=== PATIENT | female | born 1940 | race Caucasian/White ===

== ENCOUNTER 2016-08-18 15:59 | Emergency (ER) | payer MEDICARE, MEDICAID ==
[~2016-08-18] VITALS: Ht 157.5 cm; Wt 50.0 kg
[2016-08-18 16:01] VITALS: TEMP 98.7
[2016-08-18] MEDS ORDERED: RT ADVAIR 128 DISKUS IH (16:28)
[2016-08-18] MEDS ORDERED: VENTOLIN0.09 MG IH (16:28)
[2016-08-18] MEDS ORDERED: SPIRIVA RE2.5 MCG/Ac IH (16:29)
[2016-08-18 18:03] VITALS: BP 145/81; PULSE 88
== END 2016-08-18 18:03 | disposition home or self-care (01) ==
LOC: COL.ER 15:59
DX: S50.02XA Contusion of left elbow, initial encounter (principal); W01.198A Fall on same level from slipping, tripping and stumbling with subsequent striking against other object, initial encounter; Y92.008 Other place in unspecified non-institutional (private) residence as the place of occurrence of the external cause; Z99.81 Dependence on supplemental oxygen

== ENCOUNTER 2016-08-21 18:53 | Inpatient (IN) | payer MEDICARE, MEDICAID ==
[~2016-08-21] VITALS: Ht 157.5 cm; Wt 55.2 kg
[2016-08-21] VITALS (43 sets, daily range): BP systolic 62; BP diastolic 40; PULSE 110; TEMP 97.3; O2SAT 100
[~2016-08-21 18:53] MED LIST: RT ADVAIR 128 DISKUS IH; SPIRIVA RE2.5 MCG/Ac IH; VENTOLIN0.09 MG IH
[2016-08-21 19:28] LABS: BASO # 0.1 (0.0-0.2); BASO % 0.6 % (0.0-2.0); EOS # 0.1 (0.0-0.7); EOS % 1.3 % (0-4.0); GRAN # 6.2 (1.4-6.5); GRAN % 70.7 % (42.2-75.2); HEMATOCRIT 27.4 % (37.0-47.0); LYMPH # 1.2 (1.2-3.4); LYMPH % 14.1 % (20.0-51.0); MEAN CELL VOLUME 79 fl (80.0-100.0); MEAN CORPUSCULAR HEMOGLOBIN 23 pg (27.0-31.0); MEAN CORPUSCULAR HGB CONC 29 g/dl (33.0-37.0); MEAN PLATELET VOLUME 9.9 fl (7.4-10.4); MONO # 1.1 (0.1-0.6); PLATELET COUNT 428 K/mm3 (130-400); RED BLOOD COUNT 3.48 M/mm3 (4.10-5.30); REDCELL DISTRIBUTION WIDTH-CV 17.6 % (11.5-14.5); WHITE BLOOD COUNT 8.7 K/mm3 (4.8-10.8)
[2016-08-21 19:37] LABS: ADJUSTED CALCIUM 9.6 mg/dL (8.4-10.2); ALANINE AMINOTRANSFERASE 34 U/L (9-52); ALKALINE PHOSPHATASE 109 U/L (50-136); ANION GAP 11 mmol/L (7-16); BILIRUBIN,TOTAL 0.6 mg/dL (0.0-1.0); BLOOD UREA NITROGEN 22 mg/dL (7-17); CALCIUM 9.6 mg/dL (8.4-10.2); CARBON DIOXIDE 25 mmol/L (22-30); CHLORIDE 103 mmol/L (98-107); CREATININE, serum 1.32 mg/dL (0.52-1.25); GLUCOSE 102 mg/dL (74-106); LIPASE 125 U/L (23-300); POTASSIUM 4.7 mmol/L (3.4-5.0); SODIUM 139 mmol/L (137-145); TOTAL PROTEIN 7.4 gm/dL (6.4-8.2)
[2016-08-21 19:49] LABS: B-TYPE NATRIURETIC PEPTIDE 1460 pg/mL (0-125); TROPONIN-I 0.013 ng/mL (0.000-0.034)
[2016-08-21 20:53] LABS: PH 7 (5-8); SQUAMOUS EPITHELIAL 0-2 /hpf; URINE APPEARANCE Clear; URINE BACTERIA None Seen /hpf; URINE BILIRUBIN Negative (NEGATIVE); URINE BLOOD Negative (NEGATIVE); URINE COLOR Yellow; URINE GLUCOSE Negative (NEGATIVE); URINE KETONE Negative (NEGATIVE); URINE RBC 0-2 /hpf
[2016-08-21 22:43] LABS: INR 1.2 (0.8-3.0); PROTHROMBIN TIME 13.2 SECONDS (9.7-12.8); SALICYLATE < 1.0 mg/dL
[2016-08-22] VITALS (806 sets, daily range): BP systolic 62–131; BP diastolic 40–92; PULSE 93–112; TEMP 96.8–98.4; O2SAT 86–100
[2016-08-22 01:15] LABS: ARTERIAL BLOOD GAS pH 7.28 (7.35-7.45)
[2016-08-22 01:15] LABS: VENOUS BLOOD GAS SAO2 66.4 % (60-80); VENOUS BLOOD GAS SITE CENTRAL LINE
[2016-08-22 01:16] LABS: ALLEN TEST YES; ALLENS TEST RESULT PASS; ARTERIAL BLD GAS O2 SATURATION 98.4 % (92-100); ARTERIAL BLD GAS TCO2 CT 16.1; ARTERIAL BLOOD GAS BASE EXCESS -10.7 (-2-2); ARTERIAL BLOOD GAS HCO3 15.1 meq/L (22-26); ARTERIAL BLOOD GAS PO2 137.4 mmHg (80-100); ATS? YES
[2016-08-22 04:01] LABS: ARTERIAL BLD GAS O2 SATURATION 97.6 % (92-100); ARTERIAL BLD GAS TCO2 CT 12.9; ARTERIAL BLOOD GAS BASE EXCESS -13.5 (-2-2); ARTERIAL BLOOD GAS HCO3 12.1 meq/L (22-26); ARTERIAL BLOOD GAS PHT 7.29 C (7.35-7.45); ARTERIAL BLOOD GAS PO2 119.2 mmHg (80-100); ARTERIAL BLOOD GAS PO2T 119.2 (80-100); ARTERIAL BLOOD GAS pH 7.29 (7.35-7.45); OXYHEMOGLOBIN 95.7 %
[2016-08-22 04:03] LABS: ALLEN TEST YES; ALLENS TEST RESULT PASS; ARTERIAL BLD GAS O2 SATURATION 97.6 % (92-100); ARTERIAL BLD GAS TCO2 CT 12.9; ARTERIAL BLOOD GAS BASE EXCESS -13.5 (-2-2); ARTERIAL BLOOD GAS HCO3 12.1 meq/L (22-26); ARTERIAL BLOOD GAS PO2 119.2 mmHg (80-100); ARTERIAL BLOOD GAS pH 7.29 (7.35-7.45); ATS? YES
[2016-08-22 04:38] LABS: MEAN CELL VOLUME 82 fl (80.0-100.0); MEAN CORPUSCULAR HGB CONC 28 g/dl (33.0-37.0); MEAN PLATELET VOLUME 10.1 fl (7.4-10.4); PLATELET COUNT 451 K/mm3 (130-400); RED BLOOD COUNT 2.87 M/mm3 (4.10-5.30); REDCELL DISTRIBUTION WIDTH-CV 17.8 % (11.5-14.5); WHITE BLOOD COUNT 8.2 K/mm3 (4.8-10.8)
[2016-08-22 04:48] LABS: INR 1.1 (0.8-3.0); PROTHROMBIN TIME 12.5 SECONDS (9.7-12.8)
[2016-08-22 04:51] LABS: ADJUSTED CALCIUM 8.8 mg/dL (8.4-10.2); ALBUMIN 3.1 gm/dL (3.5-5.0); BILIRUBIN,TOTAL 0.4 mg/dL (0.0-1.0); CALCIUM 8.1 mg/dL (8.4-10.2); CREATININE, serum 0.96 mg/dL (0.52-1.25); MAGNESIUM 1.8 mg/dL (1.6-2.3); TOTAL PROTEIN 6.2 gm/dL (6.4-8.2)
[2016-08-22 04:59] LABS: HEMATOCRIT 23.5 % (37.0-47.0); MEAN CORPUSCULAR HEMOGLOBIN 23 pg (27.0-31.0)
[2016-08-22 05:00] LABS: ADD PATHOLOGY DIFF REVIEW NO; HEMOGLOBIN 6.6 g/dl (12.5-16.0)
[2016-08-22 05:02] LABS: VENOUS BLOOD GAS BE -6.3 (-4-4); VENOUS BLOOD GAS SAO2 61.5 % (60-80)
[2016-08-22 05:04] LABS: VENOUS BLOOD GAS SITE CENTRAL LINE
[2016-08-22 05:16] LABS: TROPONIN-I 0.1 ng/mL (0.000-0.034)
[2016-08-22 06:09] LABS: ANISOCYTOSIS 1+; BAND 24 % (0-10); HYPOCHROMIA 1+; NEUTROPHILS 72 % (42.0-75.2); PLATELET ESTIMATE INCREASED (NORMAL); TOTAL CELLS COUNTED 100
[2016-08-22 11:57] LABS: VENOUS BLOOD GAS SAO2 59.2 % (60-80)
[2016-08-22 12:00] LABS: VENOUS BLOOD GAS SITE CENTRAL LINE
[2016-08-22 12:54] LABS: HEMATOCRIT 27.4 % (37.0-47.0); HEMOGLOBIN 8.6 g/dl (12.5-16.0)
[2016-08-22 13:03] LABS: CALCIUM 8.4 mg/dL (8.4-10.2); CREATININE, serum 1.03 mg/dL (0.52-1.25); MAGNESIUM 1.8 mg/dL (1.6-2.3); POTASSIUM 3.6 mmol/L (3.4-5.0)
[2016-08-22 13:05] LABS: HEMOGLOBIN A1C 5.2 %
[2016-08-22 13:26] LABS: TROPONIN-I 0.075 ng/mL (0.000-0.034)
[2016-08-22 13:50] LABS: LACTIC ACID 2.9 mmol/L (0.4-2.0)
[2016-08-22 17:40] LABS: VENOUS BLOOD GAS SAO2 67.9 % (60-80)
[2016-08-22 17:41] LABS: VENOUS BLOOD GAS SITE CENTRAL LINE
[2016-08-22 22:09] LABS: VENOUS BLOOD GAS SITE CENTRAL LINE
[2016-08-23] VITALS (778 sets, daily range): BP systolic 94–121; BP diastolic 49–104; PULSE 70–137; TEMP 97.7–99; O2SAT 71–100
[2016-08-23 00:42] LABS: PH 5 (5-8); SQUAMOUS EPITHELIAL 0-2 /hpf; URINE APPEARANCE Hazy; URINE BACTERIA Rare /hpf; URINE BILIRUBIN Negative (NEGATIVE); URINE BLOOD 1+ (NEGATIVE); URINE COLOR Yellow; URINE GLUCOSE Negative (NEGATIVE); URINE KETONE Trace (NEGATIVE); URINE UROBILINOGEN Negative (NEGATIVE)
[2016-08-23 01:01] LABS: INFLUENZA B NEGATIVE
[2016-08-23 02:15] LABS: VENOUS BLOOD GAS BE -1.8 (-4-4); VENOUS BLOOD GAS SAO2 66.7 % (60-80); VENOUS BLOOD GAS SITE CENTRAL LINE
[2016-08-23 05:38] LABS: VENOUS BLOOD GAS BE -2.4 (-4-4); VENOUS BLOOD GAS SAO2 74.2 % (60-80); VENOUS BLOOD GAS SITE CENTRAL LINE
[2016-08-23 05:51] LABS: ARTERIAL BLD GAS TCO2 CT 24.7; ARTERIAL BLOOD GAS BASE EXCESS -1.4 (-2-2); ARTERIAL BLOOD GAS HCO3 23.4 meq/L (22-26); ARTERIAL BLOOD GAS PHT 7.39 C (7.35-7.45); ARTERIAL BLOOD GAS pH 7.39 (7.35-7.45); OXYHEMOGLOBIN 96.9 %
[2016-08-23 05:55] LABS: ALLEN TEST YES; ALLENS TEST RESULT PASS; ARTERIAL BLOOD GAS PO2 131.7 mmHg (80-100); ARTERIAL BLOOD GAS PO2T 131.7 (80-100); ATS? YES
[2016-08-23 05:55] LABS: MEAN CELL VOLUME 82 fl (80.0-100.0); MEAN CORPUSCULAR HGB CONC 31 g/dl (33.0-37.0); MEAN PLATELET VOLUME 9.9 fl (7.4-10.4); RED BLOOD COUNT 2.99 M/mm3 (4.10-5.30); REDCELL DISTRIBUTION WIDTH-CV 17.6 % (11.5-14.5); WHITE BLOOD COUNT 19.6 K/mm3 (4.8-10.8)
[2016-08-23 05:59] LABS: INR 1.1 (0.8-3.0); PROTHROMBIN TIME 12.6 SECONDS (9.7-12.8)
[2016-08-23 06:02] LABS: ADD PATHOLOGY DIFF REVIEW NO; HEMATOCRIT 24.5 % (37.0-47.0); HEMOGLOBIN 7.5 g/dl (12.5-16.0); MEAN CORPUSCULAR HEMOGLOBIN 25 pg (27.0-31.0); PLATELET COUNT 283 K/mm3 (130-400)
[2016-08-23 06:07] LABS: ADJUSTED CALCIUM 9.3 mg/dL (8.4-10.2); ALBUMIN 2.7 gm/dL (3.5-5.0); BILIRUBIN,TOTAL 0.5 mg/dL (0.0-1.0); CALCIUM 8.3 mg/dL (8.4-10.2); POTASSIUM 3.5 mmol/L (3.4-5.0); TOTAL PROTEIN 5.4 gm/dL (6.4-8.2)
[2016-08-23 06:20] LABS: BAND 15 % (0-10); NEUTROPHILS 83 % (42.0-75.2); PLATELET ESTIMATE NORMAL (NORMAL); TOTAL CELLS COUNTED 100
[2016-08-23 13:09] LABS: VENOUS BLOOD GAS BE -1.6 (-4-4); VENOUS BLOOD GAS SAO2 68.5 % (60-80)
[2016-08-23 13:10] LABS: VENOUS BLOOD GAS SITE CENTRAL LINE
[2016-08-23 18:14] LABS: VENOUS BLOOD GAS BE -0.5 (-4-4); VENOUS BLOOD GAS SAO2 65.4 % (60-80)
[2016-08-23 18:15] LABS: VENOUS BLOOD GAS SITE CENTRAL LINE
[2016-08-23 18:22] LABS: HEMATOCRIT 33.2 % (37.0-47.0); HEMOGLOBIN 10.4 g/dl (12.5-16.0)
[2016-08-23 22:19] LABS: VENOUS BLOOD GAS BE -4.5 (-4-4); VENOUS BLOOD GAS SAO2 67.5 % (60-80); VENOUS BLOOD GAS SITE CENTRAL LINE
[2016-08-24] VITALS (1319 sets, daily range): BP systolic 116–135; BP diastolic 69–92; PULSE 108–122; TEMP 97.7–98.3; O2SAT 90–100
[2016-08-24 01:41] LABS: TOTAL IRON BINDING CAPACITY 257 ug/dL (265-497)
[2016-08-24 01:54] LABS: FERRITIN 38 ng/mL (11-264)
[2016-08-24 02:02] LABS: VENOUS BLOOD GAS BE -2.2 (-4-4); VENOUS BLOOD GAS SAO2 67.1 % (60-80); VENOUS BLOOD GAS SITE CENTRAL LINE
[2016-08-24 02:12] LABS: LACTATE DEHYDROGENASE 827 U/L (313-618)
[2016-08-24 04:34] LABS: ARTERIAL BLD GAS O2 SATURATION 94.3 % (92-100); ARTERIAL BLD GAS TCO2 CT 23.9; ARTERIAL BLOOD GAS HCO3 22.6 meq/L (22-26); ARTERIAL BLOOD GAS PHT 7.35 C (7.35-7.45); ARTERIAL BLOOD GAS pH 7.35 (7.35-7.45); OXYHEMOGLOBIN 93.5 %
[2016-08-24 04:35] LABS: ALLEN TEST NO; ATS? YES
[2016-08-24 05:28] LABS: MEAN CELL VOLUME 81 fl (80.0-100.0); MEAN CORPUSCULAR HGB CONC 32 g/dl (33.0-37.0); PLATELET COUNT 325 K/mm3 (130-400); RED BLOOD COUNT 4.06 M/mm3 (4.10-5.30); REDCELL DISTRIBUTION WIDTH-CV 17.3 % (11.5-14.5)
[2016-08-24 05:32] LABS: HEMOGLOBIN 10.5 g/dl (12.5-16.0); MEAN CORPUSCULAR HEMOGLOBIN 26 pg (27.0-31.0)
[2016-08-24 05:33] LABS: ADD PATHOLOGY DIFF REVIEW NO; WHITE BLOOD COUNT 22.5 K/mm3 (4.8-10.8)
[2016-08-24 05:34] LABS: INR 1.1 (0.8-3.0)
[2016-08-24 05:40] LABS: ADJUSTED CALCIUM 9.6 mg/dL (8.4-10.2); ALBUMIN 2.9 gm/dL (3.5-5.0); BILIRUBIN,TOTAL 0.6 mg/dL (0.0-1.0); CALCIUM 8.7 mg/dL (8.4-10.2); CREATININE, serum 0.88 mg/dL (0.52-1.25); MAGNESIUM 1.7 mg/dL (1.6-2.3); TOTAL PROTEIN 5.6 gm/dL (6.4-8.2)
[2016-08-24 05:45] LABS: VANCOMYCIN TROUGH 17.86 ug/mL (7.00-20.00)
[2016-08-24 05:52] LABS: BAND 8 % (0-10); NEUTROPHILS 87 % (42.0-75.2); PLATELET ESTIMATE NORMAL (NORMAL); TOTAL CELLS COUNTED 100
[2016-08-24 05:57] LABS: VENOUS BLOOD GAS BE -2.5 (-4-4); VENOUS BLOOD GAS SAO2 63.1 % (60-80); VENOUS BLOOD GAS SITE CENTRAL LINE
[2016-08-25] VITALS (898 sets, daily range): BP systolic 117–190; BP diastolic 52–121; PULSE 63–137; TEMP 97.3–99.1; O2SAT 92–100
[2016-08-25 06:20] LABS: BASO % 0.1 % (0.0-2.0); GRAN # 13.4 (1.4-6.5); GRAN % 87.8 % (42.2-75.2); LYMPH # 0.9 (1.2-3.4); LYMPH % 5.7 % (20.0-51.0); MEAN CELL VOLUME 83 fl (80.0-100.0); MEAN CORPUSCULAR HGB CONC 31 g/dl (33.0-37.0); MEAN PLATELET VOLUME 10.2 fl (7.4-10.4); MONO # 0.8 (0.1-0.6); MONO % 5.5 % (1.7-9.3); PLATELET COUNT 299 K/mm3 (130-400); RED BLOOD COUNT 3.91 M/mm3 (4.10-5.30); REDCELL DISTRIBUTION WIDTH-CV 18.1 % (11.5-14.5); WHITE BLOOD COUNT 15.2 K/mm3 (4.8-10.8)
[2016-08-25 06:22] LABS: HEMATOCRIT 32.3 % (37.0-47.0); HEMOGLOBIN 10.1 g/dl (12.5-16.0); MEAN CORPUSCULAR HEMOGLOBIN 26 pg (27.0-31.0)
[2016-08-25 06:31] LABS: ADJUSTED CALCIUM 9.4 mg/dL (8.4-10.2); ALBUMIN 2.7 gm/dL (3.5-5.0); BILIRUBIN,TOTAL 0.6 mg/dL (0.0-1.0); CALCIUM 8.4 mg/dL (8.4-10.2); CREATININE, serum 0.87 mg/dL (0.52-1.25); POTASSIUM 3.8 mmol/L (3.4-5.0); TOTAL PROTEIN 5.2 gm/dL (6.4-8.2)
[2016-08-25 11:53] LABS: ATS? YES
[2016-08-26] VITALS (611 sets, daily range): BP systolic 125–170; BP diastolic 68–97; PULSE 77–119; TEMP 94–98.5; O2SAT 75–100
[2016-08-26 06:10] LABS: BASO % 0.2 % (0.0-2.0); GRAN # 10.8 (1.4-6.5); GRAN % 90.5 % (42.2-75.2); LYMPH # 0.6 (1.2-3.4); LYMPH % 5.2 % (20.0-51.0); MEAN CELL VOLUME 82 fl (80.0-100.0); MEAN CORPUSCULAR HGB CONC 31 g/dl (33.0-37.0); MEAN PLATELET VOLUME 10.1 fl (7.4-10.4); MONO # 0.3 (0.1-0.6); MONO % 2.4 % (1.7-9.3); PLATELET COUNT 301 K/mm3 (130-400); RED BLOOD COUNT 4.13 M/mm3 (4.10-5.30); REDCELL DISTRIBUTION WIDTH-CV 18.3 % (11.5-14.5); WHITE BLOOD COUNT 11.9 K/mm3 (4.8-10.8)
[2016-08-26 06:15] LABS: HEMATOCRIT 33.9 % (37.0-47.0); HEMOGLOBIN 10.6 g/dl (12.5-16.0); MEAN CORPUSCULAR HEMOGLOBIN 26 pg (27.0-31.0)
[2016-08-26 06:23] LABS: C-REACTIVE PROTEIN 1.5 mg/dL (0.0-0.9); CALCIUM 8.6 mg/dL (8.4-10.2); CREATININE, serum 0.79 mg/dL (0.52-1.25); POTASSIUM 3.8 mmol/L (3.4-5.0)
[2016-08-27] VITALS (648 sets, daily range): BP systolic 88–160; BP diastolic 50–84; PULSE 59–105; TEMP 97.4–98.5; O2SAT 77–100
[2016-08-27 05:59] LABS: BASO % 0.1 % (0.0-2.0); EOS % 0.2 % (0-4.0); GRAN # 9.5 (1.4-6.5); GRAN % 83.5 % (42.2-75.2); LYMPH % 8.4 % (20.0-51.0); MEAN CELL VOLUME 83 fl (80.0-100.0); MEAN CORPUSCULAR HGB CONC 31 g/dl (33.0-37.0); MEAN PLATELET VOLUME 9.9 fl (7.4-10.4); MONO # 0.7 (0.1-0.6); MONO % 6.4 % (1.7-9.3); PLATELET COUNT 306 K/mm3 (130-400); RED BLOOD COUNT 3.91 M/mm3 (4.10-5.30); REDCELL DISTRIBUTION WIDTH-CV 19.2 % (11.5-14.5); WHITE BLOOD COUNT 11.4 K/mm3 (4.8-10.8)
[2016-08-27 06:07] LABS: HEMATOCRIT 32.3 % (37.0-47.0); HEMOGLOBIN 10.1 g/dl (12.5-16.0); MEAN CORPUSCULAR HEMOGLOBIN 26 pg (27.0-31.0)
[2016-08-27 06:24] LABS: CALCIUM 8.8 mg/dL (8.4-10.2); CREATININE, serum 0.93 mg/dL (0.52-1.25)
[2016-08-27 06:41] LABS: VANCOMYCIN TROUGH 23.97 ug/mL (7.00-20.00)
[2016-08-28] VITALS (7 sets, daily range): BP systolic 86–176; BP diastolic 44–88; PULSE 56–128; TEMP 97.8–98.9
[2016-08-28 08:20] LABS: CALCIUM 8.2 mg/dL (8.4-10.2); CREATININE, serum 0.92 mg/dL (0.52-1.25); POTASSIUM 3.5 mmol/L (3.4-5.0)
[2016-08-28 08:26] LABS: MEAN CELL VOLUME 84 fl (80.0-100.0); MEAN CORPUSCULAR HGB CONC 30 g/dl (33.0-37.0); MEAN PLATELET VOLUME 9.6 fl (7.4-10.4); PLATELET COUNT 310 K/mm3 (130-400); RED BLOOD COUNT 3.91 M/mm3 (4.10-5.30); REDCELL DISTRIBUTION WIDTH-CV 19.5 % (11.5-14.5)
[2016-08-28 08:50] LABS: ADD PATHOLOGY DIFF REVIEW NO; HEMATOCRIT 32.8 % (37.0-47.0); HEMOGLOBIN 9.9 g/dl (12.5-16.0); MEAN CORPUSCULAR HEMOGLOBIN 25 pg (27.0-31.0)
[2016-08-28] MEDS ORDERED: IPRATROPIUM BROM3 M1 IH (12:38)
[2016-08-28] MEDS ORDERED: PLAVIX 75MG TAB75 MG PO (12:38)
[2016-08-28] MEDS ORDERED: LIPITOR20 MG PO (12:39)
[2016-08-28] MEDS ORDERED: PREDNISONE20 MG PO (12:41)
[2016-08-28 12:53] LABS: BAND 2 % (0-10); EOSINOPHIL 1 % (0-4); HYPOCHROMIA 2+; NEUTROPHILS 83 % (42.0-75.2); POIKILOCYTOSIS 1+; TOTAL CELLS COUNTED 100
[2016-08-29 00:34] VITALS: BP 110/73; PULSE 68; TEMP 98.2
[2016-08-29 03:22] VITALS: BP 155/74; PULSE 50; TEMP 98.7
[2016-08-29 07:38] LABS: MEAN CELL VOLUME 83 fl (80.0-100.0); MEAN CORPUSCULAR HGB CONC 31 g/dl (33.0-37.0); PLATELET COUNT 315 K/mm3 (130-400); RED BLOOD COUNT 3.97 M/mm3 (4.10-5.30); REDCELL DISTRIBUTION WIDTH-CV 19.6 % (11.5-14.5); WHITE BLOOD COUNT 10.5 K/mm3 (4.8-10.8)
[2016-08-29] MEDS ORDERED: LOPRESSOR 550 MG/TAB PO (07:51)
[2016-08-29] MEDS ORDERED: IMDUR 30MG30 MG/TAB PO (07:51)
[2016-08-29 07:52] LABS: CALCIUM 8.7 mg/dL (8.4-10.2); CREATININE, serum 0.88 mg/dL (0.52-1.25); POTASSIUM 3.5 mmol/L (3.4-5.0)
[2016-08-29] MEDS ORDERED: TYLENOL 325MG325 MG PO (07:52)
[2016-08-29] MEDS ORDERED: ZESTRIL2.5 MG PO (07:52)
[2016-08-29] MEDS ORDERED: SORE THROAT LOZ1 LO1 MM (07:52)
[2016-08-29 08:00] VITALS: BP 110/73; PULSE 68; TEMP 97.7
[2016-08-29 08:04] LABS: ADD PATHOLOGY DIFF REVIEW NO; HEMATOCRIT 32.9 % (37.0-47.0); HEMOGLOBIN 10.2 g/dl (12.5-16.0); MEAN CORPUSCULAR HEMOGLOBIN 26 pg (27.0-31.0)
[2016-08-29 11:23] VITALS: BP 74/36; PULSE 64; TEMP 97.4
[2016-08-29 11:40] VITALS: BP 110/50; PULSE 63
[2016-08-29 14:39] VITALS: BP 110/50; PULSE 63; TEMP 97.4
[2016-08-29 15:13] LABS: BAND 2 % (0-10); EOSINOPHIL 2 % (0-4); METAMYELOCYTE 1 % (0-0); MYELOCYTE 1 % (0-0); NEUTROPHILS 81 % (42.0-75.2); PLATELET ESTIMATE NORMAL (NORMAL); TOTAL CELLS COUNTED 100
[2016-08-29 15:17] LABS: ANISOCYTOSIS 3+; HYPOCHROMIA 2+; MICROCYTOSIS 2+; TOXIC GRANULATION PRESENT
[2016-08-30] MEDS ORDERED: TUSS PO (10:05)
== END 2016-08-29 15:23 | DRG 871 ==
LOC: COL.ER 18:53 → IMCU 21:12 → ICU 21:12 → IMCU 08-24 16:21 → MEDICAL 08-27 16:33
PROVIDERS: Anesthesiology Critical Care Medicine; Emergency Medicine; Family Medicine; Internal Medicine; Internal Medicine Pulmonary Disease; Nurse Practitioner Family; Nurse Practitioner Psychiatric/Mental Health
PROC: 0B988ZX Drainage of Left Upper Lobe Bronchus, Via Natural or Artificial Opening Endoscopic, Diagnostic (ICD-10-PCS; 2016-08-26)
PROC: 0B968ZX Drainage of Right Lower Lobe Bronchus, Via Natural or Artificial Opening Endoscopic, Diagnostic (ICD-10-PCS; principal; 2016-08-26 10:30)
DX: A41.9 Sepsis, unspecified organism (principal); J18.9 Pneumonia, unspecified organism; I21.4 Non-ST elevation (NSTEMI) myocardial infarction; N17.9 Acute kidney failure, unspecified; E87.2 Acidosis; R65.20 Severe sepsis without septic shock; Z66 Do not resuscitate; I12.9 Hypertensive chronic kidney disease with stage 1 through stage 4 chronic kidney disease, or unspecified chronic kidney disease; N18.9 Chronic kidney disease, unspecified; J44.9 Chronic obstructive pulmonary disease, unspecified; Z85.118 Personal history of other malignant neoplasm of bronchus and lung; F03.90 Unspecified dementia, unspecified severity, without behavioral disturbance, psychotic disturbance, mood disturbance, and anxiety; Z87.891 Personal history of nicotine dependence; D64.9 Anemia, unspecified
CPT/HCPCS: 99223-AI; 99232-AI; 99239; A4315; C9113; J0360; J0456; J0696; J1160; J1200; J1644; J1815; J1940; J1956; J2185; J2270; J2704; J2920; J2930; J3370; J7030; J7050; J7060; J7512; J8540; P9016; Q9967

== ENCOUNTER 2016-08-30 08:46 | Emergency (ER) | payer MEDICARE, MEDICAID ==
[~2016-08-30] VITALS: Ht 157.5 cm; Wt 50.0 kg
[2016-08-30 08:46] VITALS: TEMP 98.1
[~2016-08-30 08:46] MED LIST changes: +IMDUR 30MG30 MG/TAB PO; +IPRATROPIUM BROM3 M1 IH; +LIPITOR20 MG PO; +LOPRESSOR 550 MG/TAB PO; +PLAVIX 75MG TAB75 MG PO; +PREDNISONE20 MG PO; +SORE THROAT LOZ1 LO1 MM; +TYLENOL 325MG325 MG PO; +ZESTRIL2.5 MG PO
[2016-08-30] MEDS ORDERED: TUSS PO (10:05)
[2016-08-30 10:40] LABS: CALCIUM 8.8 mg/dL (8.4-10.2); CREATININE, serum 0.91 mg/dL (0.52-1.25); POTASSIUM 3.6 mmol/L (3.4-5.0)
[2016-08-30 10:47] LABS: BASO % 0.1 % (0.0-2.0); EOS # 0.3 (0.0-0.7); EOS % 2.3 % (0-4.0); GRAN # 9.9 (1.4-6.5); GRAN % 79.8 % (42.2-75.2); LYMPH % 8.1 % (20.0-51.0); MEAN CELL VOLUME 83 fl (80.0-100.0); MEAN CORPUSCULAR HGB CONC 31 g/dl (33.0-37.0); MEAN PLATELET VOLUME 10.1 fl (7.4-10.4); MONO % 8.3 % (1.7-9.3); PLATELET COUNT 330 K/mm3 (130-400); RED BLOOD COUNT 3.98 M/mm3 (4.10-5.30); WHITE BLOOD COUNT 12.4 K/mm3 (4.8-10.8)
[2016-08-30 10:54] LABS: HEMATOCRIT 32.9 % (37.0-47.0); HEMOGLOBIN 10.2 g/dl (12.5-16.0); MEAN CORPUSCULAR HEMOGLOBIN 26 pg (27.0-31.0)
[2016-08-30 11:39] VITALS: BP 158/68; PULSE 64
== END 2016-08-30 12:21 | disposition home or self-care (01) ==
LOC: COL.ER 08:46
PROVIDERS: Emergency Medicine
DX: R07.89 Other chest pain (principal); R05 Cough; I10 Essential (primary) hypertension; F03.90 Unspecified dementia, unspecified severity, without behavioral disturbance, psychotic disturbance, mood disturbance, and anxiety
CPT/HCPCS: J2060; J2270

== ENCOUNTER 2016-09-01 08:49 | Day surgery (SDC) | payer MEDICARE, MEDICAID ==
[2016-09-01] VITALS (7 sets, daily range): BP systolic 113–149; BP diastolic 51–77; PULSE 66–72; TEMP 97.9
[~2016-09-01] VITALS: Ht 157.5 cm; Wt 49.9 kg
[~2016-09-01 08:49] MED LIST changes: -ALMACONE 360 M360 ML PO; -GENTLE LAXATIVE10 MG RC; -IMODIUM A-D2 MG PO; -MILK OF MA400 MG/52 PO; -TYLENOL SU650 MG/SUP RC
[2016-09-01] MEDS ORDERED: ALMACONE 360 M360 ML PO (09:45)
[2016-09-01] MEDS ORDERED: MILK OF MA400 MG/52 PO (09:45)
[2016-09-01] MEDS ORDERED: GENTLE LAXATIVE10 MG RC (09:46)
[2016-09-01] MEDS ORDERED: TYLENOL SU650 MG/SUP RC (09:47)
[2016-09-01] MEDS ORDERED: IMODIUM A-D2 MG PO (09:48)
[2016-09-01] MEDS ORDERED: PLAVIX 75MG TAB75 MG PO (09:49)
[2016-09-01 13:24] LABS: PLEURAL FLUID RIGHT SIDE; PLEURAL FLUID APPEARANCE HAZY; PLEURAL FLUID COLOR YELLOW
[2016-09-01 13:25] LABS: PLEURAL FLUID - PMN 7.2 % (0-25)
[2016-09-01 13:49] LABS: GLUCOSE,PLEURAL FLUID 83 mg/dL
== END 2016-09-01 12:50 | disposition home or self-care (01) ==
LOC: SDCO 08:49
PROVIDERS: Internal Medicine Pulmonary Disease
DX: J90 Pleural effusion, not elsewhere classified (principal); Z87.01 Personal history of pneumonia (recurrent); E78.5 Hyperlipidemia, unspecified; Z95.5 Presence of coronary angioplasty implant and graft; Z85.118 Personal history of other malignant neoplasm of bronchus and lung; I12.9 Hypertensive chronic kidney disease with stage 1 through stage 4 chronic kidney disease, or unspecified chronic kidney disease; N18.9 Chronic kidney disease, unspecified; Z87.891 Personal history of nicotine dependence; J44.9 Chronic obstructive pulmonary disease, unspecified; Z99.81 Dependence on supplemental oxygen; K21.9 Gastro-esophageal reflux disease without esophagitis

== ENCOUNTER → 2016-09-01 | Outpatient (REF) ==
[~2016-09-01] MED LIST changes: +ALMACONE 360 M360 ML PO; +GENTLE LAXATIVE10 MG RC; +IMODIUM A-D2 MG PO; +MILK OF MA400 MG/52 PO; +TUSS PO; +TYLENOL SU650 MG/SUP RC
[2016-09-01 09:54] LABS: CALCIUM 8.9 mg/dL (8.4-10.2); CREATININE, serum 0.99 mg/dL (0.52-1.25); POTASSIUM 3.3 mmol/L (3.4-5.0)
== END ==
LOC: ZCOL.LAB 09:25
PROVIDERS: Internal Medicine
DX: Z01.89 Encounter for other specified special examinations (principal)

== ENCOUNTER → 2016-09-09 | Outpatient (REF) ==
[~2016-09-09] MED LIST changes: +ALMACONE 360 M360 ML PO; +GENTLE LAXATIVE10 MG RC; +IMODIUM A-D2 MG PO; +MILK OF MA400 MG/52 PO; +TYLENOL SU650 MG/SUP RC
[2016-09-09 15:19] LABS: BASO # 0.1 (0.0-0.2); EOS # 0.2 (0.0-0.7); EOS % 2.5 % (0-4.0); GRAN % 72.2 % (42.2-75.2); LYMPH % 12.5 % (20.0-51.0); MEAN CELL VOLUME 85 fl (80.0-100.0); MEAN CORPUSCULAR HGB CONC 30 g/dl (33.0-37.0); MEAN PLATELET VOLUME 10.1 fl (7.4-10.4); MONO # 0.9 (0.1-0.6); PLATELET COUNT 360 K/mm3 (130-400); RED BLOOD COUNT 3.88 M/mm3 (4.10-5.30); REDCELL DISTRIBUTION WIDTH-CV 22.1 % (11.5-14.5); WHITE BLOOD COUNT 8.3 K/mm3 (4.8-10.8)
[2016-09-09 15:24] LABS: HEMATOCRIT 32.9 % (37.0-47.0); HEMOGLOBIN 9.8 g/dl (12.5-16.0); MEAN CORPUSCULAR HEMOGLOBIN 25 pg (27.0-31.0)
[2016-09-09 15:35] LABS: CALCIUM 9.5 mg/dL (8.4-10.2); CREATININE, serum 1.84 mg/dL (0.52-1.25); POTASSIUM 4.3 mmol/L (3.4-5.0)
[2016-09-10 14:38] LABS: TROPONIN-I 0.048 ng/mL (0.000-0.034)
== END ==
LOC: ZCOL.LAB 15:14
PROVIDERS: Internal Medicine
DX: Z01.89 Encounter for other specified special examinations (principal)

== ENCOUNTER → 2016-09-11 | Outpatient (CLI) | payer MEDICARE, MEDICAID ==
[2016-09-11 11:18] LABS: CALCIUM 9.3 mg/dL (8.4-10.2); CREATININE, serum 1.45 mg/dL (0.52-1.25); POTASSIUM 3.9 mmol/L (3.4-5.0)
[2016-09-11 11:29] LABS: TROPONIN-I 0.025 ng/mL (0.000-0.034)
== END ==
LOC: ZCOL.LAB 10:53
PROVIDERS: Internal Medicine
DX: Z01.89 Encounter for other specified special examinations (principal)

== ENCOUNTER → 2016-09-14 | Outpatient (CLI) | payer MEDICARE, MEDICAID | LOC: ZCOL.LAB 14:41 | DX: Z01.89 Encounter for other specified special examinations (principal) ==